=== PATIENT | female | born 1990 | race Caucasian/White ===

== ENCOUNTER 2017-08-08 07:10 | Emergency (ER) | payer SELFPAY ==
[2017-08-08] MEDS ORDERED: Lidocaine 1% w/Epinephrine 1:100K 20 ML VIAL ONE (07:34)
[2017-08-08] MEDS ORDERED: Adacel (T-DAP) 0.5 ML VIAL ONE (07:59)
== END 2017-08-08 08:30 | disposition home or self-care (01) ==
LOC: ERS 07:10
DX: S01.01XA Laceration without foreign body of scalp, initial encounter (principal); F32.9 Major depressive disorder, single episode, unspecified; W22.8XXA Striking against or struck by other objects, initial encounter
CPT/HCPCS: 12002; 90471; 90715; J2001